=== PATIENT | female | born 1960 | race Hispanic/Latino ===

== ENCOUNTER 2016-12-12 10:59 | Outpatient (CLI) | payer BC ==
--- NOTE | 2016-12-12 13:15 | XRay Report ---
Left hip 2 views. History: Hip pain. History of breast cancer. Findings: There is a subtle nondisplaced fracture of the left superior pubic ramus. There also appears to be a fracture of the inferior pubic ramus, nondisplaced. There appears to be a mixed underlying lytic/blastic process within the left pubic bone. The hip joint is normal. The left femur is unremarkable. Impression: Nondisplaced fractures of the left superior and inferior pubic rami, possibly pathologic related to metastatic disease. Comment: These findings were telephoned to Dr. Vargas at 1:15 PM on December 12.
== END 2016-12-12 11:00 | disposition home or self-care (01) ==
LOC: SPVIMAG 10:59
PROVIDERS: ATTEND Internal Medicine Hematology & Oncology
DX: S32.592A Other specified fracture of left pubis, initial encounter for closed fracture (principal); Z85.3 Personal history of malignant neoplasm of breast; Z87.891 Personal history of nicotine dependence; X58.XXXA Exposure to other specified factors, initial encounter; Y93.89 Activity, other specified; Y92.89 Other specified places as the place of occurrence of the external cause; Y99.8 Other external cause status